=== PATIENT | male | born 1950 | race African-American/Black ===

== ENCOUNTER 2017-03-10 23:06 | Emergency (ER) | payer SELFPAY ==
[~2017-03-10] VITALS: Ht 180.3 cm; Wt 59.0 kg
[2017-03-10] MEDS ORDERED: ONDANSETRON HCL 4MG/2ML VIAL IV STA (23:20)
[2017-03-10] MEDS ORDERED: MORPHINE SULFATE 4 MG/ML CPJ (NOT FOR IM USE) IV STA (23:20)
[2017-03-10] MEDS ORDERED: LORAZEPAM 2MG/ML CPJ IV ONE (23:30)
[2017-03-10] MEDS ORDERED: FOLIC ACID 1 MG, THIAMINE HCL 100 MG, MVI, ADULT NO.1 10 ML in DEXTROSE 5% WATER 1,000 ML IV ONE ×4 (23:30)
[2017-03-10] MEDS ORDERED: CEFAZOLIN 1000MG PREMIX 50 ML IV ONE (23:30)
[2017-03-10] MEDS ORDERED: BACITRACIN ZINC OINT UDPKT TOP ONE (23:30)
[2017-03-10] MEDS ORDERED: TETANUS, DIPHTHERIA, PERTUSSIS VAC/PF 0.5ML (>7YR OLD) IM ONE (23:30)
[2017-03-11 00:21] LABS: HEMATOCRIT. 42.6 % (42.0-52.0); MEAN CORPUSCULAR HEMOGLOBIN 30.7 pg (28.0-32.0); MEAN CORPUSCULAR VOLUME 93.5 fL (80.0-94.0); MEAN PLATELET VOLUME 7.9 fl (7.4-10.4); PLATELET 224 x1000/uL (130-400); RED BLOOD CELL COUNT 4.56 mill/uL (4.7-6.1); RED CELL DISTRIBUTION WIDTH 14.4 % (11.6-14.6)
[2017-03-11 00:27] LABS: INR 1.1; PROTHROMBIN TIME 11.6 sec (9.4-11.6)
[2017-03-11 00:36] LABS: CARBON DIOXIDE 29 mEq/L (21-32); CHLORIDE 107 mEq/L (98-107); CREATINE KINASE 469 IU/L (39-308); ETHANOL BLOOD < 10 mg/dL; TROPONIN I < 0.02 ng/mL (0.00-0.04)
[2017-03-11] MEDS ORDERED: DEXAMETHASONE 10 MG/ML VIAL IV ONE (01:15)
[2017-03-11] MEDS ORDERED: LEVETIRACETAM 1,000 MG in SODIUM CHLORIDE 0.9% 100 ML IV ONE (01:15)
[2017-03-11] MEDS ORDERED: MANNITOL 12.5G (25%) VIAL 50ML IV ONE (01:30)
[2017-03-11 06:18] VITALS: BP 161/68
[2017-03-11 07:03] LABS: PLATELET ESTIMATE NORMAL
== END 2017-03-11 06:59 | disposition short-term general hospital (02) ==
LOC: ER 23:06
DX: S02.31XA Fracture of orbital floor, right side, initial encounter for closed fracture (principal); S06.349A Traumatic hemorrhage of right cerebrum with loss of consciousness of unspecified duration, initial encounter; I10 Essential (primary) hypertension; F14.10 Cocaine abuse, uncomplicated; F10.10 Alcohol abuse, uncomplicated; Y90.0 Blood alcohol level of less than 20 mg/100 ml; W07.XXXA Fall from chair, initial encounter; Y93.89 Activity, other specified; Y92.018 Other place in single-family (private) house as the place of occurrence of the external cause
CPT/HCPCS: 36415; 70450; 70486; 72125; 73030; 80053; 82550; 84443; 84484; 85025; 85610; 90471; 90715; 93005; 96365; 96366; 96367; 96375; 99285; G0482; J0690; J1100; J1953; J2060; J2150; J2270; J2405; J3411; J3490; J7040; J7070; Z7610; J7050

== ENCOUNTER 2018-01-22 08:38 | Inpatient (IN) | payer MEDICAID ==
[~2018-01-22] VITALS: Ht 182.9 cm; Wt 82.6 kg
[2018-01-22] MEDS ORDERED: SODIUM CHLORIDE 0.9% 1,000 ML IV ONE (09:08)
[2018-01-22 09:45] LABS: BASOPHILS % 0.4 % (0.0-2.0); EOSINOPHILS % 0.3 % (0.0-5.0); HEMATOCRIT. 45.3 % (42.0-52.0); HEMOGLOBIN. 15.2 g/dL (14.0-18.0); LYMPHOCYTES % 14.4 % (20.0-50.0); MEAN CORPUSCULAR HEMOGLOBIN 31.6 pg (28.0-32.0); MEAN CORPUSCULAR VOLUME 94.5 fL (80.0-94.0); MEAN PLATELET VOLUME 7.6 fl (7.4-10.4); MONOCYTES % 6.6 % (2.0-8.0); NEUTROPHILS % 78.3 % (40.0-76.0); PLATELET 185 x1000/uL (130-400); RED BLOOD CELL COUNT 4.79 mill/uL (4.7-6.1); RED CELL DISTRIBUTION WIDTH 14.8 % (11.6-14.6)
[2018-01-22 09:48] LABS: CHLORIDE 103 mEq/L (98-107); INR 1.1; PROTHROMBIN TIME 11.3 sec (9.1-11.1)
[2018-01-22 09:55] LABS: ETHANOL BLOOD < 10 mg/dL
[2018-01-22 10:24] LABS: CLARITY URINE CLEAR (CLEAR); COLOR URINE YELLOW (YELLOW); KETONES URINE TRACE (NEGATIVE); LEUKOCYTE ESTERASE URINE TRACE (NEGATIVE); NITRITE URINE NEGATIVE (NEGATIVE); OCCULT BLOOD URINE TRACE (NEGATIVE); PH URINE 5.5 (4.5-8.0); PROTEIN URINE 2+ (NEGATIVE); SPECIFIC GRAVITY URINE 1.014 (1.005-1.030); UROBILINOGEN URINE 0.2 E.U./dL (0.2-1.0)
[2018-01-22] MEDS ORDERED: CEFTRIAXONE 1 G PREMIX 50 ML IV NR (11:30)
[2018-01-22 11:31] LABS: *AMPHETAMINES SCREEN URINE NEGATIVE (NEGATIVE); *BARBITURATES SCREEN URINE NEGATIVE (NEGATIVE); *BENZODIAZEPINES SCREEN URINE NEGATIVE (NEGATIVE); *COCAINE SCREEN URINE PRESUMTIVE POSITIVE (NEGATIVE); CANNABINOID URINE SCREEN NEGATIVE (NEGATIVE); METHADONE URINE SCREEN NEGATIVE (NEGATIVE); OPIATES URINE SCREEN NEGATIVE (NEGATIVE); PHENCYCLIDINE URINE SCREEN NEGATIVE (NEGATIVE)
[2018-01-22] MEDS ORDERED: CLONIDINE 0.1MG TABLET PO PRN (17:00)
[2018-01-22] MEDS ORDERED: PANTOPRAZOLE SODIUM 40 MG/VIAL IV SCH (17:00)
[2018-01-22] MEDS ORDERED: LORAZEPAM 2MG/ML CPJ IV PRN (17:00)
[2018-01-22] MEDS ORDERED: ONDANSETRON HCL 4MG/2ML INJ IV PRN (17:00)
[2018-01-22] MEDS ORDERED: HYDROCODONE/ACETAMINOPHEN 5/325MG TABLET PO PRN (17:00)
[2018-01-22] MEDS ORDERED: DEXT 5%/0.45% NACL 1000ML 1,000 ML IV SCH (19:30)
[2018-01-22] MEDS: LACTULOSE 20G/30ML UDC PO SCH (20:56)
[2018-01-22 22:10] VITALS: BP 148/77
[2018-01-22 23:40] VITALS: BP 148/77
[2018-01-22] MEDS: DEXT 5%/0.45% NACL 1000ML 1,000 ML IV SCH (23:40)
[2018-01-23 04:00] VITALS: BP 97/67
[2018-01-23 06:48] LABS: CHLORIDE 108 mEq/L (98-107)
[2018-01-23 06:54] LABS: BASOPHILS % 0.4 % (0.0-2.0); EOSINOPHILS % 0.9 % (0.0-5.0); HEMATOCRIT. 40.8 % (42.0-52.0); HEMOGLOBIN. 13.6 g/dL (14.0-18.0); LYMPHOCYTES % 16.9 % (20.0-50.0); MEAN CORPUSCULAR HEMOGLOBIN 31.4 pg (28.0-32.0); MEAN CORPUSCULAR VOLUME 93.8 fL (80.0-94.0); MEAN PLATELET VOLUME 8.2 fl (7.4-10.4); MONOCYTES % 7.1 % (2.0-8.0); NEUTROPHILS % 74.7 % (40.0-76.0); PLATELET 197 x1000/uL (130-400); RED BLOOD CELL COUNT 4.35 mill/uL (4.7-6.1)
[2018-01-23 06:56] LABS: HDL CHOLESTEROL 103 mg/dL (40-59); LDL CHOLESTEROL 68 mg/dL (5-100)
[2018-01-23 08:30] VITALS: BP 116/70
[2018-01-23] MEDS ORDERED: PANTOPRAZOLE SODIUM 40 MG/VIAL IV SCH (09:00)
[2018-01-23] MEDS: LACTULOSE 20G/30ML UDC PO SCH (09:22)
[2018-01-23] MEDS: DEXT 5%/0.45% NACL 1000ML 1,000 ML IV SCH (12:17)
[2018-01-23 12:38] VITALS: BP 119/81
[2018-01-23 16:29] VITALS: BP 114/66
== END 2018-01-23 18:14 | disposition home or self-care (01) | DRG 280 ==
LOC: ER 08:38 → EDBD 11:38 → 6WST 11:38 → SUPCPDRO 16:45 → ENRESERV 21:22
PROVIDERS: ADMIT Hospitalist; ATTEND Hospitalist
DX: K70.40 Alcoholic hepatic failure without coma (principal); N17.9 Acute kidney failure, unspecified; G40.509 Epileptic seizures related to external causes, not intractable, without status epilepticus; F10.239 Alcohol dependence with withdrawal, unspecified; F14.10 Cocaine abuse, uncomplicated; S03.2XXA Dislocation of tooth, initial encounter; X58.XXXA Exposure to other specified factors, initial encounter; Y93.89 Activity, other specified; Y92.89 Other specified places as the place of occurrence of the external cause; Y99.8 Other external cause status; N39.0 Urinary tract infection, site not specified
CPT/HCPCS: 36415; 71045; 80061; 80305; 82140; 96361; 96365; 99285; C9113; G0482; J0696; J7030

== ENCOUNTER 2018-06-19 10:23 | Inpatient (IN) | payer MEDICAID ==
[~2018-06-19] VITALS: Ht 182.9 cm; Wt 74.8 kg
[2018-06-19] MEDS ORDERED: SODIUM CHLORIDE 0.9% 1,000 ML IV ONE ×2 (10:47→11:22)
[2018-06-19 11:01] LABS: BASOPHILS % 0.5 % (0.0-2.0); HEMATOCRIT. 40.4 % (42.0-52.0); HEMOGLOBIN. 13.6 g/dL (14.0-18.0); LYMPHOCYTES % 23.4 % (20.0-50.0); MEAN CORPUSCULAR HEMOGLOBIN 31.7 pg (28.0-32.0); MEAN CORPUSCULAR VOLUME 94.3 fL (80.0-94.0); MEAN PLATELET VOLUME 7.9 fl (7.4-10.4); MONOCYTES % 8.7 % (2.0-8.0); NEUTROPHILS % 66.4 % (40.0-76.0); PLATELET 156 x1000/uL (130-400); RED BLOOD CELL COUNT 4.28 mill/uL (4.7-6.1); RED CELL DISTRIBUTION WIDTH 14.5 % (11.6-14.6)
[2018-06-19 11:09] LABS: CHLORIDE 102 mEq/L (98-107)
[2018-06-19 11:10] LABS: INR 1.1; PARTIAL THROMBOPLASTIN TIME 22.9 sec (23.4-31.0); PROTHROMBIN TIME 11.4 sec (9.6-11.0)
[2018-06-19 11:16] LABS: ETHANOL BLOOD < 10 mg/dL
[2018-06-19] MEDS ORDERED: LEVETIRACETAM 1000MG/100ML 100 ML IV ONE (11:30)
[2018-06-19 11:55] LABS: CARBAMAZEPINE < 0.5 ug/mL (4-12); PHENOBARBITAL < 2.1 ug/mL (15.0-40.0); VALPROIC ACID < 3.0 ug/mL (50-100)
[2018-06-19] MEDS ORDERED: LORAZEPAM 2MG/ML CPJ IV ONE ×2 (12:00→14:30)
[2018-06-19 12:09] LABS: BG BASE EXCESS -6.5 mmol/L (-2.0-2.0); BG CARBOXYHEMOGLOBIN 3.3 % (0.5-1.5); BG DEOXYHEMOGLOBIN 5.2 % (0.0-5.0); BG FRACTION INSPIRED OXYGEN 21; BG HCO3 ACT 17.9 mmol/L (22.0-26.0); BG METHEMOGLOBIN 0.2 % (0.0-1.5); BG OXYGEN SATURATION 94.6 % (92.0-98.5); BG OXYHEMOGLOBIN 91.3 % (94.0-97.0); BG PCO2 32.5 mmHg (35.0-45.0); BG PO2 77.3 mmHg (75.0-100.0); BG SAMPLE SITE RIGHT RADIAL; BG TOTAL HEMOGLOBIN 13.1 g/dL (12.0-18.0); BG VENT MODE ROOM AIR
[2018-06-19 15:16] LABS: *AMPHETAMINES SCREEN URINE NEGATIVE (NEGATIVE); *BARBITURATES SCREEN URINE NEGATIVE (NEGATIVE); *BENZODIAZEPINES SCREEN URINE NEGATIVE (NEGATIVE); *COCAINE SCREEN URINE PRESUMTIVE POSITIVE (NEGATIVE); METHADONE URINE SCREEN NEGATIVE (NEGATIVE); OPIATES URINE SCREEN NEGATIVE (NEGATIVE)
[2018-06-19 15:17] LABS: CANNABINOID URINE SCREEN NEGATIVE (NEGATIVE); PHENCYCLIDINE URINE SCREEN NEGATIVE (NEGATIVE)
[2018-06-19 18:28] VITALS: BP 148/85
[2018-06-19] MEDS ORDERED: IPRATROPIUM/ALBUTEROL 0.5-3(2.5)MG/3ML NEB INH PRN (19:15)
[2018-06-19] MEDS ORDERED: LORAZEPAM 2MG/ML CPJ IV PRN (19:15)
[2018-06-19] MEDS ORDERED: CLONIDINE 0.1MG TABLET PO PRN (19:15)
[2018-06-19] MEDS ORDERED: ONDANSETRON HCL 4MG/2ML INJ IV PRN (19:15)
[2018-06-19] MEDS ORDERED: DOCUSATE SODIUM 100MG CAPSULE PO PRN (19:15)
[2018-06-19] MEDS ORDERED: ACETAMINOPHEN 325MG TABLET PO PRN (19:15)
[2018-06-19 20:00] VITALS: BP 134/95
[2018-06-19] MEDS: LEVETIRACETAM 500 MG in SODIUM CHLORIDE 0.9% 100 ML IV SCH (22:12)
[2018-06-19] MEDS: ENOXAPARIN 40MG/0.4ML SYR SUBCUT SCH (22:12)
[2018-06-19] MEDS: SODIUM CHLORIDE 0.9% 1,000 ML IV SCH (22:12)
[2018-06-20] VITALS: BP 115/62
[2018-06-20] MEDS: FOLIC ACID 1 MG, THIAMINE HCL 100 MG, MVI, ADULT NO.1 10 ML in DEXTROSE 5% WATER 1,000 ML IV SCH ×8 (01:47→09:00)
[2018-06-20 04:00] VITALS: BP 130/76
[2018-06-20 07:06] LABS: BASOPHILS % 1.1 % (0.0-2.0); EOSINOPHILS % 2.5 % (0.0-5.0); HEMATOCRIT. 39.2 % (42.0-52.0); HEMOGLOBIN. 13.2 g/dL (14.0-18.0); LYMPHOCYTES % 26.6 % (20.0-50.0); MEAN CORPUSCULAR HEMOGLOBIN 31.7 pg (28.0-32.0); MEAN CORPUSCULAR VOLUME 93.7 fL (80.0-94.0); MEAN PLATELET VOLUME 8.8 fl (7.4-10.4); MONOCYTES % 9.5 % (2.0-8.0); NEUTROPHILS % 60.3 % (40.0-76.0); PLATELET 144 x1000/uL (130-400); RED BLOOD CELL COUNT 4.18 mill/uL (4.7-6.1); RED CELL DISTRIBUTION WIDTH 14.3 % (11.6-14.6)
[2018-06-20 08:00] VITALS: BP 140/80
[2018-06-20 08:59] LABS: CHLORIDE 109 mEq/L (98-107)
[2018-06-20 09:11] LABS: CREATINE KINASE 672 IU/L (39-308)
[2018-06-20] MEDS: LEVETIRACETAM 500 MG in SODIUM CHLORIDE 0.9% 100 ML IV SCH ×2 (09:52→22:19)
[2018-06-20 12:00] VITALS: BP 137/87
[2018-06-20] MEDS ORDERED: POTASSIUM CHLORIDE 20MEQ TABLET SR PO NR (12:00)
[2018-06-20 16:00] VITALS: BP 129/63
[2018-06-20] MEDS: THIAMINE HCL 100MG TABLET PO SCH (16:01)
[2018-06-20] MEDS: MULTIVITAMINS,THER W-MINERALS TABLET PO SCH (16:02)
[2018-06-20] MEDS: FOLIC ACID 1MG TABLET PO SCH (16:02)
[2018-06-20] MEDS: SODIUM CHLORIDE 0.9% 1,000 ML IV SCH ×2 (16:07→22:18)
[2018-06-20 20:00] VITALS: BP 142/77
[2018-06-20] MEDS ORDERED: IOHEXOL-350 100 ML BOTTLE ONE (21:22)
[2018-06-20] MEDS: ENOXAPARIN 40MG/0.4ML SYR SUBCUT SCH (22:17)
[2018-06-21] VITALS: BP 109/61
[2018-06-21 04:00] VITALS: BP_SYST 132; BP_SYST 139; BP_DIAS 79; BP_DIAS 86
[2018-06-21 08:00] VITALS: BP 115/58
[2018-06-21] MEDS ORDERED: POTASSIUM CHLORIDE 20MEQ/PACKET PO NR (08:30)
[2018-06-21] MEDS: FOLIC ACID 1MG TABLET PO SCH (09:57)
[2018-06-21] MEDS: MULTIVITAMINS,THER W-MINERALS TABLET PO SCH (09:57)
[2018-06-21] MEDS: THIAMINE HCL 100MG TABLET PO SCH (09:57)
[2018-06-21] MEDS: LEVETIRACETAM 500 MG in SODIUM CHLORIDE 0.9% 100 ML IV SCH (09:57)
[2018-06-21 12:00] VITALS: BP 135/68
== END 2018-06-21 16:05 | disposition left against medical advice (07) | DRG 816 ==
LOC: ER 10:23 → EDBEDREQ 11:19 → 5WST 12:02 → EDBEDREQ 12:08 → ENRESERV 14:12 → CANRESERV 14:12 → ENRESERV 15:21 → 5WST 23:52
PROVIDERS: ADMIT Internal Medicine; ATTEND Internal Medicine
DX: T40.5X1A Poisoning by cocaine, accidental (unintentional), initial encounter (principal); G92 Toxic encephalopathy; N17.9 Acute kidney failure, unspecified; K70.9 Alcoholic liver disease, unspecified; E86.9 Volume depletion, unspecified; E87.6 Hypokalemia; F10.239 Alcohol dependence with withdrawal, unspecified; F14.10 Cocaine abuse, uncomplicated; R26.9 Unspecified abnormalities of gait and mobility; G40.909 Epilepsy, unspecified, not intractable, without status epilepticus; I10 Essential (primary) hypertension; Z87.891 Personal history of nicotine dependence; Y92.89 Other specified places as the place of occurrence of the external cause
CPT/HCPCS: 36415; 36600; 70496; 71045; 73521; 80048; 80156; 80165; 80184; 80185; 80305; 80320; 82375; 82550; 82805; 83735; 83880; 84484; 93005; 93306; 96365; 96366; 97162; 99291; J1650; J1953; J2060; J3411; J3490; J7030; J7050; J7070; Q9967; G0480